=== PATIENT | male | born 1930 | race Caucasian/White ===

== ENCOUNTER 2017-12-02 02:40 | Emergency (ER) | payer OTHER ==
[~2017-12-02] VITALS: Ht 175.3 cm; Wt 95.3 kg
[2017-12-02] MEDS ORDERED: LASIX20 MG (03:00)
[2017-12-02] MEDS ORDERED: SYNTHROID50 MCG (03:01)
[2017-12-02] MEDS ORDERED: STOOL SOFTENER240 MG (03:01)
[2017-12-02] MEDS ORDERED: RAPAFLO8 MG (03:02)
[2017-12-02] MEDS ORDERED: GABAPENTIN400 MG (03:02)
[2017-12-02] MEDS ORDERED: TRAMADOL HCL50 MG (03:03)
[2017-12-02] MEDS ORDERED: NORFLEX100MG PO (04:21)
== END 2017-12-02 04:27 | disposition home or self-care (01) ==
LOC: ER 02:40
DX: R25.2 Cramp and spasm (principal); M79.605 Pain in left leg